=== PATIENT | female | born 1980 | race Two or more races ===

== ENCOUNTER → 2016-12-11 | Outpatient (CLI) | payer OTHER ==
--- NOTE | 2016-12-11 11:08 | DX ---
AP Weightbearing Knees, One View Reason for examination: Knee pain involving the medial aspect of the left knee x 1 month. There is no report of recent specific trauma. Findings: A fracture is not identified. The bone alignment is normal. Joint spaces are well-maintaine d. No radiopaque foreign body is identified. Impression: Negative knees, specifically, no bony abnormality is seen involving the medial aspect of the left knee. If symptoms persist, MRI could be considered for further evaluation.
== END ==
LOC: BMCIMAGING 10:29
PROVIDERS: ATTEND Internal Medicine
DX: M25.562 Pain in left knee (principal)